=== PATIENT | female | born 1955 | race Caucasian/White ===

== ENCOUNTER 2017-02-20 05:23 | Emergency (ER) | payer BC ==
[2017-02-20] MEDS: morphine 4 MG/ML VIAL IV (06:07)
[2017-02-20] MEDS: KETOROLAC 30 MG INJ IV (06:07)
[2017-02-20] MEDS: ONDANSETRON 4 MG INJ IV (06:07)
[2017-02-20] MEDS: SOD CHLORIDE 0.9% 1,000 ML IV ×2 (06:12→10:59)
[2017-02-20 06:23] LABS: ADD MAN DIFF? NO
[2017-02-20 06:25] LABS: WHITE BLOOD COUNT 9.9 10^3/ul (4.8-10.8)
[2017-02-20 06:25] LABS: BASOPHILS % 0.4 % (0.0-2.0); EOSINOPHILS # 0.1 10^3/ul (0.0-0.5); HEMATOCRIT 39.3 % (37.0-47.0); HEMOGLOBIN 13.4 g/dl (12.0-16.0); LYMPHOCYTES # 2.4 10^3/ul (0.8-2.9); MEAN CORPUSCULAR HEMOGLOBIN 30.5 pg (29.0-33.0); MEAN CORPUSCULAR HGB CONC 34.1 g/dl (32.0-37.0); MEAN CORPUSCULAR VOLUME 89.3 fl (82.0-101.0); MONOCYTE # 0.6 10^3/ul (0.3-0.9); MONOCYTES % 5.5 % (0.0-11.0); NEUTROPHIL # 6.8 10^3/ul (1.6-7.5); NEUTROPHILS % 68.8 % (39.0-77.0); PLATELET COUNT 277 10^3/UL (140-415); RED CELL DISTRIBUTION WIDTH 12.5 % (11.5-14.5)
[2017-02-20 06:53] LABS: ALANINE AMINOTRANSFERASE 29 IU/L (13-69); ALBUMIN 4.1 g/dl (3.3-4.9); ALBUMIN/GLOBULIN RATIO 1.46; ALKALINE PHOSPHATASE 53 IU/L (42-121); AMYLASE 65 U/L (11-123); ANION GAP 15 (8-16); ASPARTATE AMINO TRANSFERASE 21 IU/L (15-46); BILIRUBIN,INDIRECT 0.5 mg/dl (0-1.1); BILIRUBIN,TOTAL 0.5 mg/dl (0.2-1.3); BLOOD UREA NITROGEN 9 mg/dl (7-20); CALCIUM 8.2 mg/dl (8.4-10.2); CARBON DIOXIDE 22 mmol/L (21-31); CHLORIDE 107 mmol/L (97-110); CREATININE 0.79 mg/dl (0.44-1.00); GLUCOSE 106 mg/dl (70-220); LIPASE 48 U/L (23-300); POTASSIUM 4.2 mmol/L (3.5-5.1); SODIUM 140 mmol/L (135-144); TOTAL PROTEIN 6.9 g/dl (6.1-8.1)
[2017-02-20 07:04] LABS: PROTIME 14.4 Sec (11.9-14.9); PT RATIO 1.1
[2017-02-20 07:05] LABS: PARTIAL THROMBOPLASTIN TIME 27.4 Sec (25.0-35.0)
[2017-02-20] MEDS: SOD CHLORIDE 0.9% 100 ML (08:09)
[2017-02-20] MEDS: IOHEXOL 300MG/ML 150 ML BTL (08:09)
[2017-02-20] MEDS: MINERAL OIL 133 ML ENEMA PR (09:06)
[2017-02-20] MEDS: MAGNESIUM HYDROXIDE 30ML CUP PO (09:06)
[2017-02-20] MEDS: BISACODYL (EC) 5 MG TAB PO (10:21)
[2017-02-20] MEDS: MAGNESIUM CITRATE 300 ML BTL PO (10:22)
[2017-02-20] MEDS: METHYLNALTREXONE 12 MG/0.6 ML VIAL SC (10:23)
[2017-02-20] MEDS: NA PHOSPHATE/BIPHOS 133 ML ENEMA PR (10:23)
== END 2017-02-20 12:28 | disposition home or self-care (01) ==
LOC: E/R 05:23
DX: K59.03 Drug induced constipation (principal); Z79.82 Long term (current) use of aspirin
CPT/HCPCS: 74177; 80053; 82150; 83690; 85025; 85610; 85730; 96372; 96374; 96375; 99285-25